=== PATIENT | male | born 1985 | race African-American/Black ===

== ENCOUNTER 2016-11-28 00:03 | Emergency (ER) | payer SELFPAY ==
[~2016-11-28] VITALS: Ht 182.9 cm; Wt 83.9 kg
[2016-11-28] MEDS ORDERED: IV NORMAL SALINE 1,000ML 1,000 ML IV SCH (00:53)
[2016-11-28] MEDS ORDERED: FAMOTIDINE 20 MG/2 ML VIAL IVP ONE (01:00)
[2016-11-28] MEDS ORDERED: KETOROLAC 30 MG/ML VIAL. IV ONE (01:00)
[2016-11-28] MEDS ORDERED: ALBU8.5H8 INH (01:08)
[2016-11-28 01:12] LABS: BASO % 1 % (0-3); EOS # 0.3 x10^3/uL (0.0-0.7); EOS % 3 % (0-3); HEMATOCRIT 41.8 % (39.0-53.0); HEMOGLOBIN 14.4 g/dL (13.0-17.5); LYMPH # 1.5 x10^3/uL (1.0-4.8); LYMPH % 17 % (24-48); MEAN CORPUSCULAR HEMOGLOBIN 32 pg (25-35); MEAN CORPUSCULAR HGB CONC 34 g/dL (31-37); MEAN CORPUSCULAR VOLUME 92 fL (79-100); MONO # 0.6 x10^3/uL (0.0-1.1); MONO % 7 % (0-9); NEUT # 6.5 x10^3uL (1.8-7.7); NEUT % 72 % (31-73); PLATELET COUNT 192 x10^3/uL (140-400); RED BLOOD COUNT 4.55 x10^6/uL (4.30-5.70); RED CELL DISTRIBUTION WIDTH 12.9 % (11.5-14.5)
--- NOTE | 2016-11-28 01:16 | ED.ADGEN ---
Past History Past Medical History: Other Additional Past Medical Histor: Abnormal Rt. Kidney- Seen Urology at [facility] Adult General Chief Complaint Chief Complaint ".. I got this bad stabbing pain in my Rt. flank starting about 7 tonight.. it so bad I started puking.. " HPI HPI Patient is a 31 year old male who presents with above hx and complaints. Pt. rates his pain 10/10 Rt flank and radiates to his right groin. Pt. denies prior hx of kidney stone, but has hx abnl. Rt. kidney, and has seen urology at [facility]. Pt. denies any history of change in meds, travel, or ill contacts. Patient denies any dysuria. Patient denies any immunosuppression. Review of Systems Review of Systems Constitutional: Denies fever or chills [] Eyes: Denies change in visual acuity, redness, or eye pain [] HENT: Denies nasal congestion or sore throat [] Respiratory: Denies cough or shortness of breath [] Cardiovascular: No additional information not addressed in HPI [] GI: Complaints of right flank abdominal pain, nausea, vomiting, denies bloody stools or diarrhea [] : Denies dysuria or hematuria [] Musculoskeletal: Denies back pain or joint pain [] Integument: Denies rash or skin lesions [] Neurologic: Denies headache, focal weakness or sensory changes [] Endocrine: Denies polyuria or polydipsia [] Family History Family History Noncontributory Current Medications Current Medications Current Medications Medications (Trade) Dose Ordered Sig/Vic Start Time Stop Time Status Last Admin Dose Admin Famotidine (Pepcid) 20 mg 1X ONCE 11/28/16 01:00 11/28/16 01:43 DC 11/28/16 01:05 20 MG Ketorolac Tromethamine (Toradol) 30 mg 1X ONCE 11/28/16 01:00 11/28/16 01:43 DC 11/28/16 01:05 30 MG Levofloxacin (Levaquin) 500 mg 1X ONCE 11/28/16 02:00 11/28/16 02:36 DC 11/28/16 02:02 500 MG Morphine Sulfate (Morphine 10mg Syringe) 10 mg 1X ONCE 11/28/16 02:00 11/28/16 02:36 DC 11/28/16 02:03 10 MG Sodium Chloride 1,000 ml @ 1,000 mls/hr Q1H 11/28/16 00:53 11/28/16 01:52 DC 11/28/16 00:53 1,000 MLS/HR Tamsulosin HCl (Flomax) 0.4 mg 1X ONCE 11/28/16 02:00 11/28/16 02:36 DC 11/28/16 02:03 0.4 MG Allergies Allergies Allergies Coded Allergies Type Severity Reaction Last Updated Verified No Known Drug Allergies 11/28/16 No Physical Exam Physical Exam Constitutional: Well developed, well nourished, in acute distress, non-toxic appearance. [] HENT: Normocephalic, atraumatic, bilateral external ears normal, oropharynx moist, no oral exudates, nose normal. [] Eyes: PERRLA, EOMI, conjunctiva normal, no discharge. [] Neck: Normal range of motion, no tenderness, supple, no stridor. [] Cardiovascular:Heart rate regular rhythm, no murmur [] Lungs & Thorax: Bilateral breath sounds clear to auscultation [] Abdomen: Bowel sounds decreased, soft, no tenderness, no masses, no pulsatile masses. Rt. flank pain on percussion. Skin: Warm, dry, no erythema, no rash. Tattoo's. Back: No tenderness, no CVA tenderness. [] Extremities: No tenderness, no cyanosis, no clubbing, ROM intact, no edema. No psoas or obturator sign Neurologic: Alert and oriented X 3, normal motor function, normal sensory function, no focal deficits noted. [] Psychologic: Affect normal, judgement normal, mood normal. [] Current Patient Data Lab Results Laboratory Tests Test 11/28/16 00:35 11/28/16 01:45 White Blood Count 9.0 x10^3/uL (4.0-11.0) Red Blood Count 4.55 x10^6/uL (4.30-5.70) Hemoglobin 14.4 g/dL (13.0-17.5) Hematocrit 41.8 % (39.0-53.0) Mean Corpuscular Volume 92 fL (79-100) Mean Corpuscular Hemoglobin 32 pg (25-35) Mean Corpuscular Hemoglobin Concent 34 g/dL (31-37) Red Cell Distribution Width 12.9 % (11.5-14.5) Platelet Count 192 x10^3/uL (140-400) Neutrophils (%) (Auto) 72 % (31-73) Lymphocytes (%) (Auto) 17 % (24-48) L Monocytes (%) (Auto) 7 % (0-9) Eosinophils (%) (Auto) 3 % (0-3) Basophils (%) (Auto) 1 % (0-3) Neutrophils # (Auto) 6.5 x10^3uL (1.8-7.7) Lymphocytes # (Auto) 1.5 x10^3/uL (1.0-4.8) Monocytes # (Auto) 0.6 x10^3/uL (0.0-1.1) Eosinophils # (Auto) 0.3 x10^3/uL (0.0-0.7) Basophils # (Auto) 0.0 x10^3/uL (0.0-0.2) Prothrombin Time 10.9 SEC (9.4-11.4) Prothrombin Time INR 1.1 (0.9-1.1) PTT 23 SEC (23-33) Sodium Level 141 mmol/L (136-145) Potassium Level 3.7 mmol/L (3.5-5.1) Chloride Level 107 mmol/L (98-107) Carbon Dioxide Level 28 mmol/L (21-32) Anion Gap 6 (6-14) Blood Urea Nitrogen 10 mg/dL (8-26) Creatinine 1.2 mg/dL (0.7-1.3) Estimated GFR (Cockcroft-Gault) 70.6 Glucose Level 98 mg/dL (70-99) Calcium Level 8.6 mg/dL (8.5-10.1) Total Bilirubin 0.6 mg/dL (0.2-1.0) Direct Bilirubin 0.1 mg/dL (0.0-0.2) Aspartate Amino Transferase (AST) 23 U/L (15-37) Alanine Aminotransferase (ALT) 22 U/L (16-63) Alkaline Phosphatase 49 U/L (46-116) Troponin I Quantitative < 0.017 ng/mL (0-0.055) Total Protein 6.2 g/dL (6.4-8.2) L Albumin 3.5 g/dL (3.4-5.0) Lipase 123 U/L (73-393) Urine Collection Type Void Urine Color Priscilla Urine Clarity Clear Urine pH 8.5 Urine Specific [place] 1.015 Urine Protein 30 mg/dl (NEG-TRACE) Urine Glucose (UA) Neg mg/dL (NEG) Urine Ketones (Stick) 15 mg/dL (NEG) Urine Blood Neg (NEG) Urine Nitrite Neg (NEG) Urine Bilirubin Neg (NEG) Urine Urobilinogen Dipstick 2 mg/dL (0.2 mg/dL) Urine Leukocyte Esterase Neg (NEG) Urine RBC Occ /HPF (0-2) Urine WBC Occ /HPF (0-4) Urine Squamous Epithelial Cells Occ /LPF Urine Bacteria Few /HPF (0-FEW) Urine Mucus Slight /LPF Urine Opiates Screen Neg (NEG) Urine Methadone Screen Neg (NEG) Urine Barbiturates Neg (NEG) Urine Phencyclidine Screen Neg (NEG) Urine Amphetamine/Methamphetamine Neg (NEG) Urine Benzodiazepines Screen Neg (NEG) Urine Cocaine Screen Neg (NEG) Urine Cannabinoids Screen Pos (NEG) Urine Ethyl Alcohol Neg (NEG) EKG EKG [] Radiology/Procedures Radiology/Procedures CT of abdomen shows no obstructive stone but does have hydronephrosis right kidney[] Course & Med Decision Making Course & Med Decision Making Pertinent Labs and Imaging studies reviewed. (See chart for details) Clear fluid diet. Push fluids. Patient push vitamin C drinks. Take Flomax as directed. Vicoprofen as needed for marked pain. Must follow-up with urology [] Final Impression Final Impression 1. Renal colic[] 2. Right renal hydronephrosis Problems: Dragon Disclaimer Dragon Disclaimer This electronic medical record was generated, in whole or in part, using a voice recognition dictation system. ESSENCE BURKS MD Nov 28, 2016 01:16
[2016-11-28 01:18] LABS: ALBUMIN 3.5 g/dL (3.4-5.0); CALCIUM 8.6 mg/dL (8.5-10.1); CREATININE 1.2 mg/dL (0.7-1.3); DIRECT BILIRUBIN 0.1 mg/dL (0.0-0.2); GFR 70.6; POTASSIUM 3.7 mmol/L (3.5-5.1); TOTAL BILIRUBIN 0.6 mg/dL (0.2-1.0); TOTAL PROTEIN 6.2 g/dL (6.4-8.2)
--- NOTE | 2016-11-28 01:31 | RAD ---
CT abdomen and pelvis without contrast HISTORY: Severe right abdominal and flank pain, nausea and vomiting. TECHNIQUE: Helical noncontrast CT imaging of the abdomen and pelvis was acquired. Abdomen findings: Liver, gallbladder, spleen, pancreas and adrenal glands are unremarkable. Left kidney unremarkable. There is severe right renal hydronephrosis associated with ureteropelvic junction obstruction, no obstructing calculus, there may be mild pericolic edema and renal edema. No obstruction or inflammatory changes in GI tract. The appendix is not visualized likely vascular by surrounding bowel loops. No abdominal fluid. High riding cecum and anatomic variant. Lung bases and bones are unremarkable. Pelvis findings: No bladder calculi. Prostate, rectum and bones are unremarkable. No pelvic fluid. IMPRESSION: 1. Severe right renal hydronephrosis due to a ureteropelvic junction obstruction. No nephroureterolithiasis evident. 2. The appendix is not visualized likely hidden by surrounding small bowel loops. Exposure: One or more of the following individualized dose reduction techniques were utilized for this examination: 1. Automated exposure control 2. Adjustment of the mA and/or kV according to patient size 3. Use of iterative reconstruction technique Electronically signed by: Abhinav Verde MD (11/28/2016 1:28 AM) [facility]
[2016-11-28] MEDS ORDERED: MORPHINE SULFATE 10 MG/ML SYRINGE. SQ ONE (02:00)
[2016-11-28] MEDS ORDERED: levoFLOXacin 500 MG TABLET PO ONE (02:00)
[2016-11-28] MEDS ORDERED: TAMSULOSIN 0.4 MG CAP.ER.24H. PO ONE (02:00)
[2016-11-28 02:24] LABS: BARBITURATES NEG (NEG); BENZODIAZEPINES NEG (NEG); CANNABINOIDS POS (NEG); COCAINE NEG (NEG); METHADONE NEG (NEG); OPIATES NEG (NEG); PHENCYCLIDINE NEG (NEG)
[2016-11-28 02:26] LABS: AMPHETAMINE/METHAMPHETAMINE NEG (NEG)
[2016-11-28] MEDS ORDERED: TAMS0.4C97 PO (02:27)
[2016-11-28] MEDS ORDERED: HYDR-79 PO (02:27)
[2016-11-28 02:30] LABS: BILIRUBIN,URINE NEG (NEG); CLARITY,URINE CLEAR; COLOR,URINE AMBER; GLUCOSE,URINE NEG (NEG)
[2016-11-28 02:31] LABS: BACTERIA,URINE FEW /HPF (0-FEW); NITRITE,URINE NEG (NEG); RBC,URINE OCC /HPF (0-2); SQUAMOUS EPITHELIAL CELL,UR OCC /LPF; UROBILINOGEN,URINE 2 mg/dL (0.2 mg/dL); WBC,URINE OCC /HPF (0-4)
[2016-11-28 02:50] VITALS: BP 131/81
== END 2016-11-28 02:56 | disposition home or self-care (01) ==
LOC: ER 00:03
DX: N23 Unspecified renal colic (principal); N13.30 Unspecified hydronephrosis
CPT/HCPCS: 36415; 74176; 80048; 80076; 80307; 81001; 83690; 84484; 85025; 85610; 85730; 96361; 96372; 96374; 96375; 99285; J1885; J2270; S0028; G0479; J7030

== ENCOUNTER 2018-04-27 01:25 | Emergency (ER) | payer SELFPAY ==
[~2018-04-27] VITALS: Ht 182.9 cm; Wt 93.0 kg
[~2018-04-27 01:25] MED LIST: ALBU2.5V8 INH; HYDR-1179 PO; TAMS0.4C97 PO
[2018-04-27] MEDS ORDERED: IV NORMAL SALINE 1,000ML 1,000 ML IV SCH (02:00)
[2018-04-27] MEDS ORDERED: ONDANSETRON PF 4 MG/2 ML VIAL. IV ONE (02:00)
[2018-04-27] MEDS ORDERED: PHENAZOPYRIDINE 200 MG TABLET. PO ONE (02:00)
[2018-04-27] MEDS: HYDROmorphone PF 1 MG/ML DISP.SYRIN IV/SQ PRN ×2 (02:02→03:42)
[2018-04-27 02:20] LABS: BASO # 0.1 x10^3/uL (0.0-0.2); BASO % 1 % (0-3); EOS # 0.7 x10^3/uL (0.0-0.7); EOS % 9 % (0-3); HEMATOCRIT 39.1 % (39.0-53.0); HEMOGLOBIN 13.2 g/dL (13.0-17.5); LYMPH # 2.7 x10^3/uL (1.0-4.8); LYMPH % 37 % (24-48); MEAN CORPUSCULAR HEMOGLOBIN 31 pg (25-35); MEAN CORPUSCULAR HGB CONC 34 g/dL (31-37); MEAN CORPUSCULAR VOLUME 93 fL (79-100); MONO # 0.6 x10^3/uL (0.0-1.1); MONO % 8 % (0-9); NEUT # 3.3 x10^3uL (1.8-7.7); NEUT % 45 % (31-73); PLATELET COUNT 230 x10^3/uL (140-400); RED BLOOD COUNT 4.21 x10^6/uL (4.30-5.70); RED CELL DISTRIBUTION WIDTH 13.2 % (11.5-14.5); WHITE BLOOD COUNT 7.4 x10^3/uL (4.0-11.0)
--- NOTE | 2018-04-27 02:27 | RAD ---
INDICATION: Severe right flank and abdomen pain, hx right stent 2 mths ago COMPARISON: November 2016 TECHNIQUE: Axial CT images obtained through the abdomen and pelvis without contrast. One or more of the following individualized dose reduction techniques were utilized for this examination: 1. Automated exposure control; 2. Adjustment of the mA and/or kV according to patient size; 3. Use of iterative reconstruction technique. FINDINGS: Abdominal aorta is not aneurysmal. No intrahepatic bile duct dilation. No peripancreatic fluid collection. Spleen unremarkable. No left-sided hydronephrosis. Severe right-sided hydronephrosis with right-sided nephroureteral stent. Urinary bladder is largely decompressed. No definite periappendiceal inflammation. There are some scattered mildly prominent lymph nodes right side of the abdomen. No dilated loops of bowel to suggest obstruction. There is some degenerative changes of spine with neural foraminal stenosis. IMPRESSION: 1. Severe right-sided hydronephrosis with right-sided nephroureteral stent. Electronically signed by: Brodie Weinberg MD (04/27/2018 2:24 AM) [facility]
[2018-04-27 02:29] LABS: CALCIUM 8.7 mg/dL (8.5-10.1); CREATININE 1.8 mg/dL (0.7-1.3); GFR 53.2
[2018-04-27 02:32] LABS: BACTERIA,URINE FEW /HPF (0-FEW); BILIRUBIN,URINE NEG (NEG); CLARITY,URINE HAZY; COLOR,URINE YELLOW; GLUCOSE,URINE 100 mg/dL (NEG); NITRITE,URINE POS (NEG); SQUAMOUS EPITHELIAL CELL,UR FEW /LPF; UROBILINOGEN,URINE 2 mg/dL (0.2 mg/dL)
--- NOTE | 2018-04-27 03:49 | PHYS DOC ---
Past History Past Medical History: Asthma, Other Additional Past Medical Histor: Abnormal Rt. Kidney- Seen Urology at [facility] Past Surgical History: Other Alcohol Use: Rarely Drug Use: None Adult General Chief Complaint Chief Complaint: FLANK PAIN HPI HPI Patient is a 32-year-old male who presents with complaint of severe right flank pain. Patient had right renal stent placed months back and states that his symptoms have not been resolved. Currently he rates his pain to be a 10 out of 10. He states that he is unable to get comfortable. He states that none of his medications that he has been taking has been helping with the pain. He also reports continued hematuria. Review of Systems Review of Systems Constitutional: Denies fever or chills [] Respiratory: Denies cough or shortness of breath [] Cardiovascular: No additional information not addressed in HPI [] GI: Denies abdominal pain, nausea, vomiting, bloody stools or diarrhea [] : Complains of right flank pain, dysuria and hematuria [] Musculoskeletal: Complains of right-sided back pain [] All other systems were reviewed and found to be within normal limits, except as documented in this note. Current Medications Current Medications Current Medications Medications (Trade) Dose Ordered Sig/Vic Start Time Stop Time Status Last Admin Dose Admin Hydromorphone HCl (Dilaudid) 1 mg PRN Q15MIN PRN 04/27/18 01:45 04/28/18 01:44 04/27/18 02:02 1 MG Ondansetron HCl (Zofran) 4 mg 1X ONCE 04/27/18 02:00 04/27/18 02:01 DC 04/27/18 02:01 4 MG Phenazopyridine HCl (Pyridium) 200 mg 1X ONCE 04/27/18 02:00 04/27/18 02:01 DC 04/27/18 02:00 200 MG Sodium Chloride 1,000 ml @ 1,000 mls/hr Q1H 04/27/18 02:00 04/27/18 03:00 DC 04/27/18 02:01 1,000 MLS/HR Allergies Allergies Allergies Coded Allergies Type Severity Reaction Last Updated Verified iodine Allergy Intermediate 04/27/18 Yes Physical Exam Physical Exam Constitutional: Well developed, well nourished, in moderate distress, non-toxic appearance. [] HENT: Normocephalic, atraumatic, bilateral external ears normal, oropharynx moist, no oral exudates, nose normal. [] Eyes: PERRLA, EOMI, conjunctiva normal, no discharge. [] Neck: Normal range of motion, no tenderness, supple, no stridor. [] Cardiovascular: Regular rate and rhythm[] Lungs & Thorax: Bilateral breath sounds clear to auscultation [] Abdomen: Bowel sounds normal, soft, with suprapubic tenderness. [] Skin: Warm, dry, no erythema, no rash. [] Extremities: No tenderness, no cyanosis, no clubbing, ROM intact, no edema. [] Neurologic: Alert and oriented X 3, normal motor function, normal sensory function, no focal deficits noted. [] Current Patient Data Vital Signs Vital Signs Date Time Temp Pulse Resp B/P (MAP) Pulse Ox O2 Delivery O2 Flow Rate FiO2 04/27/18 02:02 20 98 Room Air 04/27/18 01:28 97.4 62 Lab Results Laboratory Tests Test 04/27/18 01:49 04/27/18 01:58 Urine Collection Type Unknown Urine Color Yellow Urine Clarity Hazy Urine pH 5.5 Urine Specific [place] >=1.030 Urine Protein >100 mg/dl (NEG-TRACE) Urine Glucose (UA) 100 mg/dL (NEG) Urine Ketones (Stick) Trace mg/dL (NEG) Urine Blood Large (NEG) Urine Nitrite Pos (NEG) Urine Bilirubin Neg (NEG) Urine Urobilinogen Dipstick 2 mg/dL (0.2 mg/dL) Urine Leukocyte Esterase Neg (NEG) Urine RBC 6-10 /HPF (0-2) Urine WBC 5-10 /HPF (0-4) Urine Squamous Epithelial Cells Few /LPF Urine Bacteria Few /HPF (0-FEW) White Blood Count 7.4 x10^3/uL (4.0-11.0) Red Blood Count 4.21 x10^6/uL (4.30-5.70) L Hemoglobin 13.2 g/dL (13.0-17.5) Hematocrit 39.1 % (39.0-53.0) Mean Corpuscular Volume 93 fL (79-100) Mean Corpuscular Hemoglobin 31 pg (25-35) Mean Corpuscular Hemoglobin Concent 34 g/dL (31-37) Red Cell Distribution Width 13.2 % (11.5-14.5) Platelet Count 230 x10^3/uL (140-400) Neutrophils (%) (Auto) 45 % (31-73) Lymphocytes (%) (Auto) 37 % (24-48) Monocytes (%) (Auto) 8 % (0-9) Eosinophils (%) (Auto) 9 % (0-3) H Basophils (%) (Auto) 1 % (0-3) Neutrophils # (Auto) 3.3 x10^3uL (1.8-7.7) Lymphocytes # (Auto) 2.7 x10^3/uL (1.0-4.8) Monocytes # (Auto) 0.6 x10^3/uL (0.0-1.1) Eosinophils # (Auto) 0.7 x10^3/uL (0.0-0.7) Basophils # (Auto) 0.1 x10^3/uL (0.0-0.2) Sodium Level 144 mmol/L (136-145) Potassium Level 4.0 mmol/L (3.5-5.1) Chloride Level 108 mmol/L (98-107) H Carbon Dioxide Level 27 mmol/L (21-32) Anion Gap 9 (6-14) Blood Urea Nitrogen 14 mg/dL (8-26) Creatinine 1.8 mg/dL (0.7-1.3) H Estimated GFR (Cockcroft-Gault) 53.2 Glucose Level 97 mg/dL (70-99) Calcium Level 8.7 mg/dL (8.5-10.1) EKG EKG [] Radiology/Procedures Radiology/Procedures [] Impressions: PROCEDURE: CT ABDOMEN PELVIS WO CONTRAST INDICATION: Severe right flank and abdomen pain, hx right stent 2 mths ago COMPARISON: November 2016 TECHNIQUE: Axial CT images obtained through the abdomen and pelvis without contrast. One or more of the following individualized dose reduction techniques were utilized for this examination: 1. Automated exposure control; 2. Adjustment of the mA and/or kV according to patient size; 3. Use of iterative reconstruction technique. FINDINGS: Abdominal aorta is not aneurysmal. No intrahepatic bile duct dilation. No peripancreatic fluid collection. Spleen unremarkable. No left-sided hydronephrosis. Severe right-sided hydronephrosis with right-sided nephroureteral stent. Urinary bladder is largely decompressed. No definite periappendiceal inflammation. There are some scattered mildly prominent lymph nodes right side of the abdomen. No dilated loops of bowel to suggest obstruction. There is some degenerative changes of spine with neural foraminal stenosis. IMPRESSION: 1. Severe right-sided hydronephrosis with right-sided nephroureteral stent. Electronically signed by: Brodie Weinberg MD (04/27/2018 2:24 AM) [facility] Course & Med Decision Making Course & Med Decision Making Pertinent Labs and Imaging studies reviewed. (See chart for details) [] Dragon Disclaimer Dragon Disclaimer This electronic medical record was generated, in whole or in part, using a voice recognition dictation system. Departure Departure: Impression: Primary Impression: Hydronephrosis due to obstruction of ureter Additional Impressions: Acute kidney injury UTI (urinary tract infection) Disposition: 02 XFER [facility] Condition: IMPROVED Referrals: PCP,NO (PCP) Problem Qualifiers Additional Impressions: UTI (urinary tract infection) Urinary tract infection type: site unspecified Hematuria presence: with hematuria Qualified Codes: N39.0 - Urinary tract infection, site not specified ; R31.9 - Hematuria, unspecified LURDES HERNANDEZ Jr. DO Apr 27, 2018 03:49
[2018-04-27] MEDS ORDERED: IV NORMAL SALINE 50ML 50 ML ONE (03:52)
[2018-04-27] MEDS ORDERED: cefTRIAXone SODIUM 1 GM VIAL ONE (03:52)
[2018-04-27 04:05] VITALS: BP 113/72
== END 2018-04-27 04:41 | disposition short-term general hospital (02) ==
LOC: ER 01:25
DX: N13.1 Hydronephrosis with ureteral stricture, not elsewhere classified (principal); N17.9 Acute kidney failure, unspecified; N39.0 Urinary tract infection, site not specified; R31.9 Hematuria, unspecified; J45.909 Unspecified asthma, uncomplicated; Z88.8 Allergy status to other drugs, medicaments and biological substances
CPT/HCPCS: 36415; 74176; 80048; 81001; 85025; 87086; 96365; 96375; 96376; 99285; J0696; J1170; J2405; 96361; J7030

== ENCOUNTER 2018-08-30 21:33 | Emergency (ER) | payer SELFPAY ==
[~2018-08-30] VITALS: Ht 185.4 cm; Wt 93.0 kg
[2018-08-30] MEDS ORDERED: IV RINGERS SOLUTION,LACTATED 1,000 ML IV SCH (21:39)
--- NOTE | 2018-08-30 21:39 | ED.ADGEN ---
Past History Past Medical History: Asthma, Other Additional Past Medical Histor: Abnormal Rt. Kidney- Seen Urology at [facility] Past Surgical History: Other Alcohol Use: Rarely Drug Use: None Adult General Chief Complaint Chief Complaint ".. I ve got this flank pain.."..".. I have an abnormal kidney on the Rt.... since .. they say.. I had a stent put in back in February.. and they say it needs to be replaced... but my last doctor at [facility]... got me an apt at [facility]... because I can't afford to go to him...I ve also followed with a urology at [facility].. anyway.. I ve got my kidney pain again tonight on this rt. flank... and I am really nauseated.. and my urine got blood in it again..." HPI HPI Patient is a 33 year old male who presents with above hx and complaints acute on chronic right renal colic. 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 Patient poorly had a stent placed in February of this past y ear. However has been told he needs repositioning of the stent. Patient does have a follow-up appointment on September 17 at [facility]. Patient denies any trauma. Patient denies immunosuppression. No recent travel. Patient has had financial noncompliance for his follow-up with urology. Patient's rating his pain denied as 10 out of 10, and is having increased nausea. Review of Systems Review of Systems Constitutional: Denies fever or chills [] Eyes: Denies change in visual acuity, redness, or eye pain [] HENT: Denies nasal congestion or sore throat [] Respiratory: Denies cough or shortness of breath [] Cardiovascular: No additional information not addressed in HPI [] GI: Complaints of right flank abdominal pain, nausea,. Denies vomiting, bloody stools or diarrhea [] : Complaints of hematuria Musculoskeletal: Complaints of right flank back pain Integument: Denies rash or skin lesions [] Neurologic: Denies headache, focal weakness or sensory changes [] Endocrine: Denies polyuria or polydipsia [] All other systems were reviewed and found to be within normal limits, except as documented in this note. Family History Family History Noncontributory Current Medications Current Medications Current Medications Medications (Trade) Dose Ordered Sig/Vic Start Time Stop Time Status Last Admin Dose Admin Ceftriaxone Sodium 1 gm/ Sodium Chloride 50 ml @ 100 mls/hr 1X ONCE 08/30/18 23:45 08/31/18 00:14 08/30/18 23:36 100 MLS/HR Ceftriaxone Sodium (Rocephin) 1 gm STK-MED ONCE 08/30/18 23:29 08/30/18 23:30 DC Famotidine (Pepcid Vial) 20 mg 1X ONCE 08/30/18 22:00 08/30/18 22:01 DC 08/30/18 22:20 20 MG Ketorolac Tromethamine (Toradol 30mg Vial) 30 mg 1X ONCE 08/30/18 22:00 08/30/18 22:01 DC 08/30/18 22:20 30 MG Lactated Ringer's 1,000 ml @ 1,000 mls/hr Q1H 08/30/18 21:39 08/30/18 22:38 DC 08/30/18 22:21 1,000 MLS/HR Levofloxacin (Levaquin) 500 mg 1X ONCE 08/31/18 00:30 08/31/18 00:31 08/31/18 00:11 500 MG Morphine Sulfate (Morphine 10mg Syringe) 10 mg 1X ONCE 08/30/18 23:45 08/30/18 23:46 DC 08/30/18 23:35 10 MG Ondansetron HCl (Zofran) 8 mg 1X ONCE 08/30/18 22:00 08/30/18 22:01 DC 08/30/18 22:20 8 MG Sodium Chloride 50 ml @ As Directed STK-MED ONCE 08/30/18 23:29 08/30/18 23:30 DC Allergies Allergies Allergies Coded Allergies Type Severity Reaction Last Updated Verified iodine Allergy Intermediate 04/27/18 Yes Physical Exam Physical Exam Constitutional: In acute distress, non-toxic appearance. [] HENT: Normocephalic, atraumatic, bilateral external ears normal, oropharynx moist, no oral exudates, nose normal. [] Eyes: PERRLA, EOMI, conjunctiva normal, no discharge. [] Neck: Normal range of motion, no tenderness, supple, no stridor. [] Cardiovascular:Heart rate regular rhythm, no murmur [] Lungs & Thorax: Bilateral breath sounds equal at apex on auscultation [] Abdomen: Bowel sounds decreased, soft, right flank tenderness, no masses, no pulsatile masses. No specific rebound. Skin: Warm, dry, no erythema, no rash. [] Back: No tenderness, right CVA tenderness. [] Extremities: No tenderness, no cyanosis, no clubbing, ROM intact, no edema. [] No psoas sign. Neurologic: Alert and oriented X 3, normal motor function, normal sensory function, no focal deficits noted. [] Psychologic: Affect anxious, judgement normal, mood normal. [] Current Patient Data Vital Signs Vital Signs Date Time Temp Pulse Resp B/P (MAP) Pulse Ox O2 Delivery O2 Flow Rate FiO2 08/30/18 23:35 Room Air 08/30/18 22:21 20 08/30/18 21:46 98.3 58 99 Lab Results Laboratory Tests Test 08/30/18 22:10 White Blood Count 6.8 x10^3/uL (4.0-11.0) Red Blood Count 4.51 x10^6/uL (4.30-5.70) Hemoglobin 14.3 g/dL (13.0-17.5) Hematocrit 41.9 % (39.0-53.0) Mean Corpuscular Volume 93 fL (79-100) Mean Corpuscular Hemoglobin 32 pg (25-35) Mean Corpuscular Hemoglobin Concent 34 g/dL (31-37) Red Cell Distribution Width 13.1 % (11.5-14.5) Platelet Count 254 x10^3/uL (140-400) Neutrophils (%) (Auto) 58 % (31-73) Lymphocytes (%) (Auto) 30 % (24-48) Monocytes (%) (Auto) 8 % (0-9) Eosinophils (%) (Auto) 4 % (0-3) H Basophils (%) (Auto) 1 % (0-3) Neutrophils # (Auto) 3.9 x10^3uL (1.8-7.7) Lymphocytes # (Auto) 2.0 x10^3/uL (1.0-4.8) Monocytes # (Auto) 0.5 x10^3/uL (0.0-1.1) Eosinophils # (Auto) 0.3 x10^3/uL (0.0-0.7) Basophils # (Auto) 0.0 x10^3/uL (0.0-0.2) Prothrombin Time 11.0 SEC (9.4-11.4) Prothrombin Time INR 1.1 (0.9-1.1) PTT 24 SEC (23-33) Urine Collection Type Unknown Urine Color [place] Urine Clarity Hazy Urine pH 7.0 Urine Specific [place] 1.010 Urine Protein 30 mg/dl (NEG-TRACE) Urine Glucose (UA) 100 mg/dL (NEG) Urine Ketones (Stick) Neg mg/dL (NEG) Urine Blood Large (NEG) Urine Nitrite Pos (NEG) Urine Bilirubin Neg (NEG) Urine Urobilinogen Dipstick 1 mg/dL (0.2 mg/dL) Urine Leukocyte Esterase Trace (NEG) Urine RBC 6-10 /HPF (0-2) Urine WBC 1-4 /HPF (0-4) Urine Squamous Epithelial Cells Occ /LPF Urine Bacteria Few /HPF (0-FEW) Sodium Level 144 mmol/L (136-145) Potassium Level 3.2 mmol/L (3.5-5.1) L Chloride Level 106 mmol/L (98-107) Carbon Dioxide Level 25 mmol/L (21-32) Anion Gap 13 (6-14) Blood Urea Nitrogen 9 mg/dL (8-26) Creatinine 1.1 mg/dL (0.7-1.3) Estimated GFR (Cockcroft-Gault) 93.3 Glucose Level 85 mg/dL (70-99) Calcium Level 9.2 mg/dL (8.5-10.1) Total Bilirubin 0.4 mg/dL (0.2-1.0) Direct Bilirubin 0.1 mg/dL (0.0-0.2) Aspartate Amino Transferase (AST) 15 U/L (15-37) Alanine Aminotransferase (ALT) 26 U/L (16-63) Alkaline Phosphatase 61 U/L (46-116) Total Protein 7.4 g/dL (6.4-8.2) Albumin 4.0 g/dL (3.4-5.0) Lipase 297 U/L (73-393) Urine Opiates Screen Neg (NEG) Urine Methadone Screen Neg (NEG) Urine Barbiturates Neg (NEG) Urine Phencyclidine Screen Neg (NEG) Urine Amphetamine/Methamphetamine Neg (NEG) Urine Benzodiazepines Screen Neg (NEG) Urine Cocaine Screen Neg (NEG) Urine Cannabinoids Screen Neg (NEG) Urine Ethyl Alcohol Neg (NEG) EKG EKG [] Radiology/Procedures Radiology/Procedures My interpretation acute abdomen film shows no acute cardiopulmonary changes. No free air in the diaphragm. Nonspecific bowel gas pattern. Does have findings of a right renal stent that appears to be appropriately positioned [][address] [address] IMAGING REPORT Signed PATIENT: BETHANY STEWART ACCOUNT: [id number] : 1985 LOCATION: ER AGE: 33 SEX: M EXAM STATUS: REG ER ORD. PHYSICIAN: ESSENCE BURKS MD REASON: Rt. flank pain, renal stent PROCEDURE: CT ABDOMEN PELVIS WO CONTRAST PQRS Compliance Statement: One or more of the following individualized dose reduction techniques were utilized for this examination: 1. Automated exposure control 2. Adjustment of the mA and/or kV according to patient size 3. Use of iterative reconstruction technique CT ABDOMEN PELVIS WO CONTRAST Clinical Indication: Right flank pain, renal stent. Comparison: CT abdomen and pelvis without contrast, April 27, 2018. Technique: Helical CT imaging of the abdomen and pelvis is performed without IV or oral contrast. Findings: Bases are clear. Cardiac size normal. Liver, gallbladder, spleen, pancreas, adrenal glands, and abdominal aorta caliber are normal. The left kidney is normal. There is a right ureteral stent, position is appropriate. There is severe right hydronephrosis, slightly improved from prior study. Stomach unremarkable. There is no dilated small bowel. The appendix is normal. There is no colon wall thickening. No abdominal adenopathy or free fluid. No urinary bladder wall thickening. Prostate size normal. No pelvic free fluid. No acute bone abnormality. IMPRESSION: There is right renal stent. Severe right hydronephrosis. Electronically signed by: Viral Still MD (08/30/2018 11:22 PM) [facility] DICTATED AND SIGNED BY: VIRAL STILL MD DATE: 08/30/18 8961 CC: ESSENCE BURKS MD; PCP,NO ~ Course & Med Decision Making Course & Med Decision Making Pertinent Labs and Imaging studies reviewed. (See chart for details) Patient declines admission or transfer at this time. Patient states he will follow with [facility] tomorrow. Patient encourage push fluids. Patient to take Levaquin 500 mg a day. Patient may take Vicoprofen up to 4 times a day for marked pain. Patient take Zofran 8 mg up 4 times a day for nausea and vomiting. Patient take his CT disc with him on follow-up with urology. Follow up urine cultures. [] Final Impression Final Impression 1. Renal Colic- Rt. 2. Rt. Hydronephrosis 3. Rt Renal Stent 4. UTI [] Dragon Disclaimer Dragon Disclaimer This electronic medical record was generated, in whole or in part, using a voice recognition dictation system. Discharge Summary Visit Information Final Diagnosis Problems Medical Problems: (1) Hydronephrosis concurrent with and due to ureteral stricture Status: Acute (2) Renal colic on right side Status: Acute Brief Hospital Course Allergies Allergies Coded Allergies Type Severity Reaction Last Updated Verified iodine Allergy Intermediate 04/27/18 Yes Vital Signs Vital Signs Date Time Temp Pulse Resp B/P (MAP) Pulse Ox O2 Delivery O2 Flow Rate FiO2 08/30/18 23:35 Room Air 08/30/18 22:21 20 08/30/18 21:46 98.3 58 99 Lab Results Laboratory Tests Test 08/30/18 22:10 White Blood Count 6.8 x10^3/uL (4.0-11.0) Red Blood Count 4.51 x10^6/uL (4.30-5.70) Hemoglobin 14.3 g/dL (13.0-17.5) Hematocrit 41.9 % (39.0-53.0) Mean Corpuscular Volume 93 fL (79-100) Mean Corpuscular Hemoglobin 32 pg (25-35) Mean Corpuscular Hemoglobin Concent 34 g/dL (31-37) Red Cell Distribution Width 13.1 % (11.5-14.5) Platelet Count 254 x10^3/uL (140-400) Neutrophils (%) (Auto) 58 % (31-73) Lymphocytes (%) (Auto) 30 % (24-48) Monocytes (%) (Auto) 8 % (0-9) Eosinophils (%) (Auto) 4 % (0-3) Basophils (%) (Auto) 1 % (0-3) Neutrophils # (Auto) 3.9 x10^3uL (1.8-7.7) Lymphocytes # (Auto) 2.0 x10^3/uL (1.0-4.8) Monocytes # (Auto) 0.5 x10^3/uL (0.0-1.1) Eosinophils # (Auto) 0.3 x10^3/uL (0.0-0.7) Basophils # (Auto) 0.0 x10^3/uL (0.0-0.2) Prothrombin Time 11.0 SEC (9.4-11.4) Prothromb Time International Ratio 1.1 (0.9-1.1) Activated Partial Thromboplast Time 24 SEC (23-33) Urine Collection Type Unknown Urine Color [place] Urine Clarity Hazy Urine pH 7.0 Urine Specific [place] 1.010 Urine Protein 30 mg/dl (NEG-TRACE) Urine Glucose (UA) 100 mg/dL (NEG) Urine Ketones (Stick) Neg mg/dL (NEG) Urine Blood Large (NEG) Urine Nitrite Pos (NEG) Urine Bilirubin Neg (NEG) Urine Urobilinogen Dipstick 1 mg/dL (0.2 mg/dL) Urine Leukocyte Esterase Trace (NEG) Urine RBC 6-10 /HPF (0-2) Urine WBC 1-4 /HPF (0-4) Urine Squamous Epithelial Cells Occ /LPF Urine Bacteria Few /HPF (0-FEW) Sodium Level 144 mmol/L (136-145) Potassium Level 3.2 mmol/L (3.5-5.1) Chloride Level 106 mmol/L (98-107) Carbon Dioxide Level 25 mmol/L (21-32) Anion Gap 13 (6-14) Blood Urea Nitrogen 9 mg/dL (8-26) Creatinine 1.1 mg/dL (0.7-1.3) Estimated GFR (Cockcroft-Gault) 93.3 Glucose Level 85 mg/dL (70-99) Calcium Level 9.2 mg/dL (8.5-10.1) Total Bilirubin 0.4 mg/dL (0.2-1.0) Direct Bilirubin 0.1 mg/dL (0.0-0.2) Aspartate Amino Transf (AST/SGOT) 15 U/L (15-37) Alanine Aminotransferase (ALT/SGPT) 26 U/L (16-63) Alkaline Phosphatase 61 U/L (46-116) Total Protein 7.4 g/dL (6.4-8.2) Albumin 4.0 g/dL (3.4-5.0) Lipase 297 U/L (73-393) Urine Opiates Screen Neg (NEG) Urine Methadone Screen Neg (NEG) Urine Barbiturates Neg (NEG) Urine Phencyclidine Screen Neg (NEG) Urine Amphetamine/Methamphetamine Neg (NEG) Urine Benzodiazepines Screen Neg (NEG) Urine Cocaine Screen Neg (NEG) Urine Cannabinoids Screen Neg (NEG) Urine Ethyl Alcohol Neg (NEG) Brief Hospital Course Mr. Stewart is a 33 old male who presented with acute on chronic Rt renal colic. Discharge Information Condition at Discharge: Improved, Stable Disposition/Orders: D/C to Home Dischare Medications Current Medications Lactated Ringer's 1,000 ml @ 1,000 mls/hr Q1H IV Last administered on 08/30/18at 22:21; Admin Dose 1,000 MLS/HR; Start 08/30/18 at 21:39; Stop 08/30/18 at 22:38; Status DC Ondansetron HCl (Zofran) 8 mg 1X ONCE IV Last administered on 08/30/18at 22:20; Admin Dose 8 MG; Start 08/30/18 at 22:00; Stop 08/30/18 at 22:01; Status DC Famotidine (Pepcid Vial) 20 mg 1X ONCE IVP Last administered on 08/30/18at 22:20; Admin Dose 20 MG; Start 08/30/18 at 22:00; Stop 08/30/18 at 22:01; Status DC Ketorolac Tromethamine (Toradol 30mg Vial) 30 mg 1X ONCE IV Last administered on 08/30/18at 22:20; Admin Dose 30 MG; Start 08/30/18 at 22:00; Stop 08/30/18 at 22:01; Status DC Morphine Sulfate (Morphine 10mg Syringe) 10 mg 1X ONCE SQ Last administered on 08/30/18at 22:21; Admin Dose 10 MG; Start 08/30/18 at 22:00; Stop 08/30/18 at 22:01; Status DC Morphine Sulfate (Morphine 10mg Syringe) 10 mg 1X ONCE SQ Last administered on 08/30/18at 23:35; Admin Dose 10 MG; Start 08/30/18 at 23:45; Stop 08/30/18 at 23:46; Status DC Ceftriaxone Sodium 1 gm/ Sodium Chloride 50 ml @ 100 mls/hr 1X ONCE IV Last administered on 08/30/18at 23:36; Admin Dose 100 MLS/HR; Start 08/30/18 at 23:45; Stop 08/31/18 at 00:14 Sodium Chloride 50 ml @ As Directed STK-MED ONCE .ROUTE ; Start 08/30/18 at 23:29; Stop 08/30/18 at 23:30; Status DC Ceftriaxone Sodium (Rocephin) 1 gm STK-MED ONCE .ROUTE ; Start 08/30/18 at 23:29; Stop 08/30/18 at 23:30; Status DC Levofloxacin (Levaquin) 500 mg 1X ONCE PO Last administered on 08/31/18at 00:11; Admin Dose 500 MG; Start 08/31/18 at 00:30; Stop 08/31/18 at 00:31 Active Scripts Active Levaquin (Levofloxacin) 500 Mg Tablet 500 Mg PO DAILY 7 Days Zofran (Ondansetron Hcl) 8 Mg Tablet 8 Mg PO QIDPRN PRN Hydrocodone-Ibuprofen 7.5-200 (Hydrocodone/Ibuprofen) 1 Each Tablet 1 Tab PO PRN Q6HRS PRN Hydrocodone-Ibuprofen 7.5-200 (Hydrocodone/Ibuprofen) 1 Each Tablet 1 Tab PO PRN Q6HRS PRN Flomax (Tamsulosin Hcl) 0.4 Mg Cap.er.24h 0.4 Mg PO DAILY 10 Days Reported Proair Hfa Inhaler (Albuterol Sulfate) 8.5 Gm Hfa.aer.ad 2 Puff INH PRN Q6HRS PRN Dragon Disclaimer This chart was dictated in whole or in part using Voice Recognition software in a busy, high-work load, and often noisy Emergency Department environment. It may contain unintended and wholly unrecognized errors or omissions. ESSENCE BURKS MD Aug 30, 2018 21:39
[2018-08-30] MEDS ORDERED: MORPHINE SULFATE 10 MG/ML SYRINGE. SQ ONE ×2 (22:00→23:45)
[2018-08-30] MEDS ORDERED: ONDANSETRON PF 4 MG/2 ML VIAL. IV ONE (22:00)
[2018-08-30] MEDS ORDERED: FAMOTIDINE 20 MG/2 ML VIAL IVP ONE (22:00)
[2018-08-30] MEDS ORDERED: KETOROLAC 30 MG/ML VIAL. IV ONE (22:00)
[2018-08-30 22:30] LABS: BASO % 1 % (0-3); EOS # 0.3 x10^3/uL (0.0-0.7); EOS % 4 % (0-3); HEMATOCRIT 41.9 % (39.0-53.0); HEMOGLOBIN 14.3 g/dL (13.0-17.5); LYMPH % 30 % (24-48); MEAN CORPUSCULAR HEMOGLOBIN 32 pg (25-35); MEAN CORPUSCULAR HGB CONC 34 g/dL (31-37); MEAN CORPUSCULAR VOLUME 93 fL (79-100); MONO # 0.5 x10^3/uL (0.0-1.1); MONO % 8 % (0-9); NEUT # 3.9 x10^3uL (1.8-7.7); NEUT % 58 % (31-73); PLATELET COUNT 254 x10^3/uL (140-400); RED BLOOD COUNT 4.51 x10^6/uL (4.30-5.70); RED CELL DISTRIBUTION WIDTH 13.1 % (11.5-14.5); WHITE BLOOD COUNT 6.8 x10^3/uL (4.0-11.0)
[2018-08-30 22:37] LABS: AMPHETAMINE/METHAMPHETAMINE NEG (NEG); BARBITURATES NEG (NEG); BENZODIAZEPINES NEG (NEG); CANNABINOIDS NEG (NEG); COCAINE NEG (NEG); METHADONE NEG (NEG); OPIATES NEG (NEG); PHENCYCLIDINE NEG (NEG)
[2018-08-30 22:42] LABS: CALCIUM 9.2 mg/dL (8.5-10.1); CREATININE 1.1 mg/dL (0.7-1.3); DIRECT BILIRUBIN 0.1 mg/dL (0.0-0.2); GFR 93.3; POTASSIUM 3.2 mmol/L (3.5-5.1); TOTAL BILIRUBIN 0.4 mg/dL (0.2-1.0); TOTAL PROTEIN 7.4 g/dL (6.4-8.2)
[2018-08-30 22:52] LABS: BILIRUBIN,URINE NEG (NEG); CLARITY,URINE HAZY; COLOR,URINE ORANGE; GLUCOSE,URINE 100 mg/dL (NEG)
[2018-08-30 22:53] LABS: BACTERIA,URINE FEW /HPF (0-FEW); NITRITE,URINE POS (NEG); SQUAMOUS EPITHELIAL CELL,UR OCC /LPF; UROBILINOGEN,URINE 1 mg/dL (0.2 mg/dL)
--- NOTE | 2018-08-30 23:25 | RAD ---
PQRS Compliance Statement: One or more of the following individualized dose reduction techniques were utilized for this examination: 1. Automated exposure control 2. Adjustment of the mA and/or kV according to patient size 3. Use of iterative reconstruction technique CT ABDOMEN PELVIS WO CONTRAST Clinical Indication: Right flank pain, renal stent. Comparison: CT abdomen and pelvis without contrast, April 27, 2018. Technique: Helical CT imaging of the abdomen and pelvis is performed without IV or oral contrast. Findings: Bases are clear. Cardiac size normal. Liver, gallbladder, spleen, pancreas, adrenal glands, and abdominal aorta caliber are normal. The left kidney is normal. There is a right ureteral stent, position is appropriate. There is severe right hydronephrosis, slightly improved from prior study. Stomach unremarkable. There is no dilated small bowel. The appendix is normal. There is no colon wall thickening. No abdominal adenopathy or free fluid. No urinary bladder wall thickening. Prostate size normal. No pelvic free fluid. No acute bone abnormality. IMPRESSION: There is right renal stent. Severe right hydronephrosis. Electronically signed by: Viral Still MD (08/30/2018 11:22 PM) [facility]
[2018-08-30] MEDS ORDERED: IV NORMAL SALINE 50ML 50 ML ONE (23:29)
[2018-08-30] MEDS ORDERED: cefTRIAXone SODIUM 1 GM VIAL ONE (23:29)
[2018-08-30] MEDS ORDERED: LEVO500T59 PO (23:58)
[2018-08-30] MEDS ORDERED: ONDA8TAB9 PO (23:58)
[2018-08-30] MEDS ORDERED: HYDR-1179 PO (23:58)
[2018-08-31 00:10] VITALS: BP 132/88
[2018-08-31] MEDS ORDERED: levoFLOXacin 500 MG TABLET PO ONE (00:30)
--- NOTE | 2018-08-31 07:58 | RAD ---
EXAM: Frontal view of the chest, AP views of the abdomen in upright and supine positions. CLINICAL INDICATION: Right flank pain, history of right renal stent COMPARISON: CT 08/30/2018 FINDINGS and IMPRESSION: The heart is not enlarged. Mediastinal and hilar contours are normal. No focal parenchymal airspace opacity. No pleural effusion or pneumothorax. No abnormal small or large bowel dilatation. Right ureteral stent is seen with pigtails projecting over the expected right renal pelvis and bladder. Moderate colonic stool content. No abnormal soft tissue mass effect. No suspicious calcifications are seen. No free intraperitoneal gas. Electronically signed by: Jonathon Masters MD (08/31/2018 7:55 AM) [facility]
== END 2018-08-31 00:12 | disposition home or self-care (01) ==
LOC: ER 21:33
DX: N13.1 Hydronephrosis with ureteral stricture, not elsewhere classified (principal); N20.0 Calculus of kidney; N39.0 Urinary tract infection, site not specified; J45.909 Unspecified asthma, uncomplicated; Z88.8 Allergy status to other drugs, medicaments and biological substances
CPT/HCPCS: 36415; 74022; 74176; 80048; 80076; 80307; 81001; 83690; 85025; 85610; 85730; 87086; 96365; 96372; 96375; 99285; J0696; J1885; J2270; J2405; J3490; J7120

== ENCOUNTER 2018-10-06 19:46 | Emergency (ER) | payer SELFPAY ==
[2018-10-06 19:46] VITALS: BP 136/84
[~2018-10-06 19:46] MED LIST changes: +LEVO500T59 PO; +ONDA8TAB9 PO
[2018-10-06] MEDS ORDERED: IV NORMAL SALINE 1,000ML 1,000 ML IV SCH (20:14)
[2018-10-06] MEDS ORDERED: HYDROmorphone PF 1 MG/ML DISP.SYRIN IV/SQ PRN (20:15)
[2018-10-06] MEDS ORDERED: ONDANSETRON PF 4 MG/2 ML VIAL. IV ONE (20:30)
[2018-10-06 20:43] LABS: BASO # 0.1 x10^3/uL (0.0-0.2); BASO % 1 % (0-3); EOS # 0.2 x10^3/uL (0.0-0.7); EOS % 4 % (0-3); HEMATOCRIT 44.5 % (39.0-53.0); LYMPH % 33 % (24-48); MEAN CORPUSCULAR HEMOGLOBIN 31 pg (25-35); MEAN CORPUSCULAR HGB CONC 34 g/dL (31-37); MEAN CORPUSCULAR VOLUME 93 fL (79-100); MONO # 0.5 x10^3/uL (0.0-1.1); MONO % 8 % (0-9); NEUT # 3.3 x10^3uL (1.8-7.7); NEUT % 55 % (31-73); PLATELET COUNT 242 x10^3/uL (140-400); RED BLOOD COUNT 4.78 x10^6/uL (4.30-5.70); RED CELL DISTRIBUTION WIDTH 13.3 % (11.5-14.5); WHITE BLOOD COUNT 6.1 x10^3/uL (4.0-11.0)
[2018-10-06 20:57] LABS: ALBUMIN 4.2 g/dL (3.4-5.0); ALBUMIN/GLOBULIN RATIO 1.1 (1.0-1.7); CALCIUM 9.6 mg/dL (8.5-10.1); CREATININE 1.1 mg/dL (0.7-1.3); GFR 93.3; POTASSIUM 3.6 mmol/L (3.5-5.1); TOTAL BILIRUBIN 0.4 mg/dL (0.2-1.0); TOTAL PROTEIN 7.9 g/dL (6.4-8.2)
[2018-10-06 21:12] LABS: BACTERIA,URINE 0 /HPF (0-FEW); BILIRUBIN,URINE NEG (NEG); CLARITY,URINE TURBID; COLOR,URINE BROWN; GLUCOSE,URINE NEG (NEG); NITRITE,URINE NEG (NEG); RBC,URINE TNTC /HPF (0-2); SQUAMOUS EPITHELIAL CELL,UR OCC /LPF; UROBILINOGEN,URINE 0.2 mg/dL (0.2 mg/dL)
[2018-10-06] MEDS ORDERED: OXYC1TAB22 PO (21:37)
[2018-10-06] MEDS ORDERED: MTH/1CAP PO (21:37)
--- NOTE | 2018-10-06 21:37 | PHYS DOC ---
Past History Past Medical History: Asthma, Kidney Stones, Other Additional Past Medical Histor: Abnormal Rt. Kidney- Seen Urology at [facility] Past Surgical History: Other Alcohol Use: Occasionally Drug Use: None Adult General Chief Complaint Chief Complaint: FLANK PAIN HPI HPI Patient is a 33-year-old male who presents with complaint of right flank pain and urinary discomfort that has been present chronically. Patient had a ureteral stent placed back in February of this year. He states that he is scheduled for removal of stent next Thursday. He states the pain has just gotten unbearable. He states that it feels like he has a urinary tract infection all the time. He does admit to intermittent nausea. Currently he rates his pain to be an 8 out of 10.[] Review of Systems Review of Systems Constitutional: Denies fever or chills [] Respiratory: Denies cough or shortness of breath [] Cardiovascular: No additional information not addressed in HPI [] GI: Complains of right flank/lower abdominal pain with nausea.[] : Complains of dysuria and hematuria [] Musculoskeletal: Complains of right-sided back pain [] All other systems were reviewed and found to be within normal limits, except as documented in this note. Current Medications Current Medications Current Medications Medications (Trade) Dose Ordered Sig/Vic Start Time Stop Time Status Last Admin Dose Admin Hydromorphone HCl (Dilaudid) 1 mg PRN Q15MIN PRN 10/06/18 20:15 10/07/18 20:14 10/06/18 20:35 1 MG Ondansetron HCl (Zofran) 4 mg 1X ONCE 10/06/18 20:30 10/06/18 20:31 DC 10/06/18 20:35 4 MG Sodium Chloride 1,000 ml @ 1,000 mls/hr Q1H 10/06/18 20:14 10/06/18 21:13 DC 10/06/18 20:35 1,000 MLS/HR Allergies Allergies Allergies Coded Allergies Type Severity Reaction Last Updated Verified iodine Allergy Intermediate 04/27/18 Yes Physical Exam Physical Exam Constitutional: Well developed, well nourished, no acute distress, non-toxic appearance. [] Cardiovascular:Heart rate regular rhythm, no murmur [] Lungs & Thorax: Bilateral breath sounds clear to auscultation [] Abdomen: Bowel sounds normal, soft, with suprapubic tenderness. [] Skin: Warm, dry, no erythema, no rash. [] Neurologic: Alert and oriented X 3, no focal deficits noted. [] Current Patient Data Vital Signs Vital Signs Date Time Temp Pulse Resp B/P (MAP) Pulse Ox O2 Delivery O2 Flow Rate FiO2 10/06/18 20:35 20 98 10/06/18 19:46 97.5 58 Room Air Lab Results Laboratory Tests Test 10/06/18 20:25 White Blood Count 6.1 x10^3/uL (4.0-11.0) Red Blood Count 4.78 x10^6/uL (4.30-5.70) Hemoglobin 15.0 g/dL (13.0-17.5) Hematocrit 44.5 % (39.0-53.0) Mean Corpuscular Volume 93 fL (79-100) Mean Corpuscular Hemoglobin 31 pg (25-35) Mean Corpuscular Hemoglobin Concent 34 g/dL (31-37) Red Cell Distribution Width 13.3 % (11.5-14.5) Platelet Count 242 x10^3/uL (140-400) Neutrophils (%) (Auto) 55 % (31-73) Lymphocytes (%) (Auto) 33 % (24-48) Monocytes (%) (Auto) 8 % (0-9) Eosinophils (%) (Auto) 4 % (0-3) H Basophils (%) (Auto) 1 % (0-3) Neutrophils # (Auto) 3.3 x10^3uL (1.8-7.7) Lymphocytes # (Auto) 2.0 x10^3/uL (1.0-4.8) Monocytes # (Auto) 0.5 x10^3/uL (0.0-1.1) Eosinophils # (Auto) 0.2 x10^3/uL (0.0-0.7) Basophils # (Auto) 0.1 x10^3/uL (0.0-0.2) Urine Collection Type Unknown Urine Color Brown Urine Clarity Turbid Urine pH 6.5 Urine Specific [place] >=1.030 Urine Protein >100 mg/dl (NEG-TRACE) Urine Glucose (UA) Neg mg/dL (NEG) Urine Ketones (Stick) Trace mg/dL (NEG) Urine Blood Large (NEG) Urine Nitrite Neg (NEG) Urine Bilirubin Neg (NEG) Urine Urobilinogen Dipstick 0.2 mg/dL (0.2 mg/dL) Urine Leukocyte Esterase Trace (NEG) Urine RBC Tntc /HPF (0-2) Urine WBC 1-4 /HPF (0-4) Urine Squamous Epithelial Cells Occ /LPF Urine Bacteria 0 /HPF (0-FEW) Urine Mucus Slight /LPF Sodium Level 142 mmol/L (136-145) Potassium Level 3.6 mmol/L (3.5-5.1) Chloride Level 105 mmol/L (98-107) Carbon Dioxide Level 29 mmol/L (21-32) Anion Gap 8 (6-14) Blood Urea Nitrogen 9 mg/dL (8-26) Creatinine 1.1 mg/dL (0.7-1.3) Estimated GFR (Cockcroft-Gault) 93.3 BUN/Creatinine Ratio 8 (6-20) Glucose Level 90 mg/dL (70-99) Calcium Level 9.6 mg/dL (8.5-10.1) Total Bilirubin 0.4 mg/dL (0.2-1.0) Aspartate Amino Transferase (AST) 17 U/L (15-37) Alanine Aminotransferase (ALT) 22 U/L (16-63) Alkaline Phosphatase 69 U/L (46-116) Total Protein 7.9 g/dL (6.4-8.2) Albumin 4.2 g/dL (3.4-5.0) Albumin/Globulin Ratio 1.1 (1.0-1.7) EKG EKG [] Radiology/Procedures Radiology/Procedures [] Course & Med Decision Making Course & Med Decision Making Pertinent Labs and Imaging studies reviewed. (See chart for details) [] Dragon Disclaimer Dragon Disclaimer This electronic medical record was generated, in whole or in part, using a voice recognition dictation system. Departure Departure: Impression: Primary Impression: Dysuria Additional Impression: Right flank pain Disposition: 01 HOME, SELF-CARE Condition: STABLE Referrals: PCP,NO (PCP) Patient Instructions: Dysuria, Flank Pain, Form - Excuse from Work, School, or Physical Activity Scripts Mth/Me Blue/Sod Phos/Phen/Hyos (URIN D.S. TABLET) 1 Each Tablet 1 EACH PO QID PRN for URINARY PAIN, #30 TAB 1 Refill Prov: LURDES HERNANDEZ Jr. DO 10/06/18 Mth/Me Blue/Sod Phos/Phen/Hyos (URIBEL CAPSULE) 1 Each Capsule 1 CAP PO PRN QID PRN for URINARY PAIN, #30 CAP 1 Refill Prov: LURDES HERNANDEZ Jr. DO 10/06/18 Oxycodone Hcl/Acetaminophen (PERCOCET 10-325 MG TABLET ) 1 Each Tablet 1-2 TAB PO Q4-6HRS PRN for PAIN, #20 TAB Prov: LURDES HERNANDEZ Jr. DO 10/06/18 Problem Qualifiers LURDES HERNANDEZ Jr. DO Oct 06, 2018 21:37
[2018-10-06] MEDS ORDERED: [UNRECOGNIZED DRUG - CODE] PO (21:40)
[2018-10-06] MEDS ORDERED: oxyCODONE/APAP 10/325 1 TAB TABLET PO ONE (22:15)
== END 2018-10-06 22:25 | disposition home or self-care (01) ==
LOC: ER 19:46
DX: R10.31 Right lower quadrant pain (principal); R30.0 Dysuria; R11.0 Nausea; M54.89 Other dorsalgia; J45.909 Unspecified asthma, uncomplicated; Z87.442 Personal history of urinary calculi; Z88.8 Allergy status to other drugs, medicaments and biological substances
CPT/HCPCS: 36415; 80053; 81001; 85025; 87086; 96374; 96375; 99284; J1170; J2405; J7030

== ENCOUNTER 2018-10-12 17:42 | Emergency (ER) | payer SELFPAY ==
[~2018-10-12] VITALS: Ht 185.4 cm; Wt 86.6 kg
[~2018-10-12 17:42] MED LIST changes: +MTH/1CAP PO; +OXYC1TAB22 PO; +[UNRECOGNIZED DRUG - CODE] PO
--- NOTE | 2018-10-12 18:05 | PHYS DOC ---
Past History Past Medical History: Asthma, Kidney Stones, Other Additional Past Medical Histor: Abnormal Rt. Kidney- Seen U[facility] Past Surgical History: Other Alcohol Use: Occasionally Drug Use: None Adult General Chief Complaint Chief Complaint: ABDOMINAL PAIN HPI HPI Patient is a 33-year-old male with a history of kidney stones who had a right ureteral stent removed today at [facility]. He did not get any pain medication after the stent removal. Since the stent removal he has had progressive pain in the right flank radiating to the groin. He denies any fever chills or sweats. He has had some nausea secondary to the pain. He denies any gross hematuria. Currently, he states the pain is severe where there is no alleviating or exacerbating factors. He isn't been unable to drink much in the way of liquid today.[] Review of Systems Review of Systems Constitutional: Denies fever or chills [] Eyes: Denies change in visual acuity, redness, or eye pain [] HENT: Denies nasal congestion or sore throat [] Respiratory: Denies cough or shortness of breath [] Cardiovascular: No additional information not addressed in HPI [] GI: Denies abdominal pain, nausea, vomiting, bloody stools or diarrhea [] : Per history of present illness[] Musculoskeletal: Denies back pain or joint pain [] Integument: Denies rash or skin lesions [] Neurologic: Denies headache, focal weakness or sensory changes [] Endocrine: Denies polyuria or polydipsia [] All other systems were reviewed and found to be within normal limits, except as documented in this note. Allergies Allergies Allergies Coded Allergies Type Severity Reaction Last Updated Verified iodine Allergy Intermediate 04/27/18 Yes Physical Exam Physical Exam Constitutional: Well developed, well nourished, severe distress, non-toxic appearance. [] HENT: Normocephalic, atraumatic, bilateral external ears normal, oropharynx moist, no oral exudates, nose normal. [] Eyes: PERRLA, EOMI, conjunctiva normal, no discharge. [] Neck: Normal range of motion, no tenderness, supple, no stridor. [] Cardiovascular:Heart rate regular rhythm, no murmur [] Lungs & Thorax: Bilateral breath sounds clear to auscultation [] Abdomen: Bowel sounds normal, soft, no tenderness, no masses, no pulsatile masses. [] Skin: Warm, dry, no erythema, no rash. [] Back: No tenderness, no CVA tenderness. [] Extremities: No tenderness, no cyanosis, no clubbing, ROM intact, no edema. [] Neurologic: Alert and oriented X 3, normal motor function, normal sensory function, no focal deficits noted. [] Psychologic: Anxious. [] EKG EKG [] Radiology/Procedures Radiology/Procedures [] Course & Med Decision Making Course & Med Decision Making Pertinent Labs and Imaging studies reviewed. (See chart for details) [ED course: Evaluation reveals a 33-year-old male with right flank pain. This is likely related to ureteral spasm. He was given IV fluids, Toradol, Dilaudid, Flomax and Zofran with near complete resolution of his symptoms. I will provide the patient with some Flomax and pain medicine to take as an outpatient. I've encouraged him to follow up with his urologist should his symptoms continue.] Dragon Disclaimer Dragon Disclaimer This electronic medical record was generated, in whole or in part, using a voice recognition dictation system. Departure Departure: Impression: Primary Impression: Acute flank pain Disposition: HOME, SELF-CARE Condition: IMPROVED Referrals: PCPDORIAN (PCP) Patient Instructions: Ureteral Stent Additional Instructions: Take medication as directed. Increase her fluids. Return to the emergency department with any new or concerning symptoms. If your symptoms reoccur please call your urologist tomorrow to schedule a follow-up visit. Scripts Ondansetron (ONDANSETRON ODT) 4 Mg Tab.rapdis 1 TAB PO PRN Q6-8HRS for NAUSEA, #16 TAB Prov: MEHDI CARLISLE DO 10/12/18 Oxycodone Hcl/Acetaminophen (PERCOCET 10-325 MG TABLET ) 1 Each Tablet 1 TAB PO PRN Q6HRS PRN for PAIN, #12 TAB Prov: MEHDI CARLISLE DO 10/12/18 Tamsulosin Hcl (FLOMAX) 0.4 Mg Cap.er.24h 1 CAP PO DAILY for ureteral spasm, #30 CAP 11 Refills Prov: MEHDI CARLISLE DO 10/12/18 MEHDI CARLISLE DO Oct 12, 2018 18:05
[2018-10-12] MEDS ORDERED: TAMSULOSIN 0.4 MG CAP.ER.24H. PO ONE (18:15)
[2018-10-12] MEDS ORDERED: IV NORMAL SALINE 1,000ML 1,000 ML IV ONE (18:15)
[2018-10-12] MEDS ORDERED: ONDANSETRON PF 4 MG/2 ML VIAL. IV ONE (18:15)
[2018-10-12] MEDS ORDERED: HYDROmorphone PF 1 MG/ML DISP.SYRIN IVP ONE (18:15)
[2018-10-12] MEDS ORDERED: KETOROLAC 30 MG/ML VIAL. IV ONE (18:15)
[2018-10-12 18:29] LABS: BASO % 0 % (0-3); EOS % 0 % (0-3); HEMATOCRIT 41.7 % (39.0-53.0); HEMOGLOBIN 14.1 g/dL (13.0-17.5); LYMPH # 0.6 x10^3/uL (1.0-4.8); LYMPH % 5 % (24-48); MEAN CORPUSCULAR HEMOGLOBIN 32 pg (25-35); MEAN CORPUSCULAR HGB CONC 34 g/dL (31-37); MEAN CORPUSCULAR VOLUME 93 fL (79-100); MONO # 0.3 x10^3/uL (0.0-1.1); MONO % 3 % (0-9); NEUT # 9.8 x10^3uL (1.8-7.7); NEUT % 92 % (31-73); PLATELET COUNT 248 x10^3/uL (140-400); RED BLOOD COUNT 4.48 x10^6/uL (4.30-5.70); RED CELL DISTRIBUTION WIDTH 13.1 % (11.5-14.5); WHITE BLOOD COUNT 10.7 x10^3/uL (4.0-11.0)
[2018-10-12 18:31] LABS: CALCIUM 9.6 mg/dL (8.5-10.1); CREATININE 1.7 mg/dL (0.7-1.3); GFR 56.4; POTASSIUM 3.9 mmol/L (3.5-5.1)
[2018-10-12] MEDS ORDERED: ONDA4TAB12 PO (19:35)
[2018-10-12] MEDS ORDERED: OXYC1TAB22 PO (19:35)
[2018-10-12] MEDS ORDERED: TAMS0.4C97 PO (19:35)
[2018-10-12 19:53] LABS: BILIRUBIN,URINE NEG (NEG); CLARITY,URINE HAZY; COLOR,URINE YELLOW; GLUCOSE,URINE NEG (NEG)
[2018-10-12 19:54] LABS: BACTERIA,URINE 0 /HPF (0-FEW); NITRITE,URINE NEG (NEG); RBC,URINE >40 /HPF (0-2); SQUAMOUS EPITHELIAL CELL,UR OCC /LPF; UROBILINOGEN,URINE 0.2 mg/dL (0.2 mg/dL); WBC,URINE OCC /HPF (0-4)
[2018-10-12 20:00] VITALS: BP 141/85
== END 2018-10-12 20:10 | disposition home or self-care (01) ==
LOC: ER 17:42
DX: R10.9 Unspecified abdominal pain (principal); J45.909 Unspecified asthma, uncomplicated; Z87.442 Personal history of urinary calculi; Z88.8 Allergy status to other drugs, medicaments and biological substances
CPT/HCPCS: 36415; 80048; 81001; 85025; 96374; 96375; 99284; J1170; J1885; J2405; J7030

== ENCOUNTER 2018-11-19 13:14 | Emergency (ER) | payer SELFPAY ==
[~2018-11-19] VITALS: Ht 185.4 cm; Wt 90.7 kg
[~2018-11-19 13:14] MED LIST changes: +ONDA4TAB12 PO
[2018-11-19 13:28] VITALS: BP 173/111
[2018-11-19] MEDS ORDERED: GELATIN SPONGE SIZE 12-7MM SPONGE. ONE (13:48)
--- NOTE | 2018-11-19 13:54 | PHYS DOC ---
Past History Past Medical History: Asthma Additional Past Medical Histor: Abnormal Rt. Kidney- Seen Urology [facility] Past Surgical History: Other Additional Past Surgical Histo: KIDNEY STENT Alcohol Use: Occasionally Drug Use: Marijuana Adult General Chief Complaint Chief Complaint: FINGER INJURY HPI HPI 33-year-old male presents with finger laceration. 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 He cut his finger to close down to the bleed and he sliced the end of his right third digit. The patient found a piece of skin afterwards. He had immediate bleeding. He washed it out in the sink. It was a clean cut except for pickle juice. He denies any other injuries or complaints. Review of Systems Review of Systems Constitutional: Denies fever or chills [] Eyes: Denies change in visual acuity, redness, or eye pain [] HENT: Denies nasal congestion or sore throat [] Respiratory: Denies cough or shortness of breath [] Cardiovascular: No additional information not addressed in HPI [] GI: Denies abdominal pain, nausea, vomiting, bloody stools or diarrhea [] : Denies dysuria or hematuria [] Musculoskeletal: Denies back pain or joint pain [] Integument: Laceration of right third finger[] Neurologic: Denies headache, focal weakness or sensory changes [] Endocrine: Denies polyuria or polydipsia [] All other systems were reviewed and found to be within normal limits, except as documented in this note. Current Medications Current Medications Current Medications Medications (Trade) Dose Ordered Sig/Vic Start Time Stop Time Status Last Admin Dose Admin Gelatin (Gelfoam Size 12-7mm) 1 each STK-MED ONCE 11/19/18 13:48 11/19/18 13:48 DC Allergies Allergies Allergies Coded Allergies Type Severity Reaction Last Updated Verified iodine Allergy Intermediate 11/19/18 Yes Physical Exam Physical Exam Constitutional: Well developed, well nourished, no acute distress, non-toxic appearance. [] HENT: Normocephalic, atraumatic, bilateral external ears normal, oropharynx moist, no oral exudates, nose normal. [] Eyes: PERRLA, EOMI, conjunctiva normal, no discharge. [] Neck: Normal range of motion, no tenderness, supple, no stridor. [] Cardiovascular:Heart rate regular rhythm, no murmur [] Lungs & Thorax: Bilateral breath sounds clear to auscultation [] Abdomen: Bowel sounds normal, soft, no tenderness, no masses, no pulsatile masses. [] Skin: Laceration of the distal third phalanx of the right hand. 3 mm x 7 mm area of skin missing.[] Back: No tenderness, no CVA tenderness. [] Extremities: No tenderness, no cyanosis, no clubbing, ROM intact, no edema. [] Neurologic: Alert and oriented X 3, normal motor function, normal sensory function, no focal deficits noted. [] Psychologic: Affect normal, judgement normal, mood normal. [] Current Patient Data Vital Signs Vital Signs Date Time Temp Pulse Resp B/P (MAP) Pulse Ox O2 Delivery O2 Flow Rate FiO2 11/19/18 13:28 97.4 71 18 98 Room Air EKG EKG [] Radiology/Procedures Radiology/Procedures [] Course & Med Decision Making Course & Med Decision Making Pertinent Labs and Imaging studies reviewed. (See chart for details) The patient's laceration avulsed off the entire area of skin. This is not amenable to sutures. It will have to heal by secondary intention. We have placed Gelfoam and a compression dressing over the wound. The patient will leave this on until the end of the day tomorrow. He will then do daily changes with a nonadherent pad. His tetanus is up-to-date. He is stable for discharge at this time. [] Dragon Disclaimer Dragon Disclaimer This electronic medical record was generated, in whole or in part, using a voice recognition dictation system. Departure Departure: Impression: Primary Impression: Laceration of right middle finger Disposition: 01 HOME, SELF-CARE Condition: STABLE Referrals: PCP,NO (PCP) Patient Instructions: Fingertip Laceration Problem Qualifiers Primary Impression: Laceration of right middle finger Encounter type: initial encounter Damage to nail status: without damage Foreign body presence: without foreign body Qualified Codes: S61.212A - Laceration without foreign body of right middle finger without damage to nail, initial encounter AUGUSTO PRESCOTT DO Nov 19, 2018 13:54
== END 2018-11-19 13:58 | disposition home or self-care (01) ==
LOC: ER 13:14
DX: S61.212A Laceration without foreign body of right middle finger without damage to nail, initial encounter (principal); J45.909 Unspecified asthma, uncomplicated; Z88.8 Allergy status to other drugs, medicaments and biological substances; W27.8XXA Contact with other nonpowered hand tool, initial encounter; Y93.89 Activity, other specified; Y92.89 Other specified places as the place of occurrence of the external cause; Y99.0 Civilian activity done for income or pay
CPT/HCPCS: 99283

== ENCOUNTER 2020-05-30 18:58 | Emergency (ER) | payer BC ==
[~2020-05-30] VITALS: Ht 185.4 cm; Wt 89.0 kg
[2020-05-30 19:23] VITALS: BP 143/94
--- NOTE | 2020-05-30 19:56 | PHYS DOC ---
Past History Past Medical History: Asthma Additional Past Medical Histor: Abnormal Rt. Kidney- Seen Urology [facility] Past Surgical History: Other Additional Past Surgical Histo: hernia repair, kidney stents Alcohol Use: Occasionally Drug Use: Marijuana General Adult EDM: Chief Complaint: LOWER EXT PAIN HPI: HPI: Patient is a 34-year-old male who presents with right maradiaga pain. Patient states pain started a few days ago. Patient denies known injury. Patient denies calf pain. Reports taking Aleve at home for pain, which provided some relief. Denies health history. Review of Systems: Review of Systems: Constitutional: Denies fever or chills Eyes: Denies change in visual acuity HENT: Denies nasal congestion or sore throat Respiratory: Denies cough or shortness of breath Cardiovascular: Denies chest pain or edema GI: Denies abdominal pain, nausea, vomiting, bloody stools or diarrhea : Denies dysuria Musculoskeletal: Reports right-sided maradiaga pain Integument: Denies rash Neurologic: Denies headache, focal weakness or sensory changes Endocrine: Denies polyuria or polydipsia Lymphatic: Denies swollen glands Psychiatric: Denies depression or anxiety Allergies: Allergies: Allergies Coded Allergies Type Severity Reaction Last Updated Verified iodine Allergy Intermediate 05/30/20 Yes Physical Exam: PE: Constitutional: Well developed, well nourished, no acute distress, non-toxic appearance. [] HENT: Normocephalic, atraumatic, bilateral external ears normal, oropharynx moist, no oral exudates, nose normal. [] Eyes: PERRLA, EOMI, conjunctiva normal, no discharge. [] Neck: Normal range of motion, no tenderness, supple, no stridor. [] Cardiovascular:Heart rate regular rhythm, no murmur [] Lungs & Thorax: Bilateral breath sounds clear to auscultation [] Abdomen: Bowel sounds normal, soft, no tenderness, no masses, no pulsatile masses. [] Skin: Warm, dry, no swelling to right maradiaga Back: No tenderness, no CVA tenderness. [] Extremities: Right maradiaga tenderness, no cyanosis, no edema, range of motion intact Neurologic: Alert and oriented X 3, normal motor function, normal sensory function, no focal deficits noted. [] Psychologic: Affect normal, judgement normal, mood normal. [] Current Patient Data: Vital Signs: Vital Signs Date Time Temp Pulse Resp B/P (MAP) Pulse Ox O2 Delivery O2 Flow Rate FiO2 05/30/20 19:23 98.4 85 18 143/94 (110) 98 EKG: EKG: [] Radiology/Procedures: Radiology/Procedures: [] Heart Score: C/O Chest Pain: No Risk Factors: Risk Factors: DM, Current or recent (<one month) smoker, HTN, HLP, family history of CAD, obesity. Risk Scores: Score 0 - 3: 2.5% MACE over next 6 weeks - Discharge Home Score 4 - 6: 20.3% MACE over next 6 weeks - Admit for Clinical Observation Score 7 - 10: 72.7% MACE over next 6 weeks - Early Invasive Strategies Course & Med Decision Making: Course & Med Decision Making Pertinent Labs and Imaging studies reviewed. (See chart for details) [] Patient presents with right maradiaga pain. Patient denies known injury. "It feels like maradiaga splints, but I was not sure". Patient reports taking Aleve with some relief at home. Pedal pulses intact. Range of motion intact. No swelling noted. Tib-fib, right leg ordered to rule out fracture. Ibuprofen given for discomfort. X-rays negative for fracture. Patient instructed to use ibuprofen and Tylenol at home. Rice instructions given. Patient still has pain, follow-up with PCP. Return emergency room with worsening symptoms or concerns. Juan Disclaimer: Juan Disclaimer: This electronic medical record was generated, in whole or in part, using a voice recognition dictation system. Departure Departure: Impression: Primary Impression: Maradiaga splint of right lower extremity Qualified Codes: S86.891A - Other injury of other muscle(s) and tendon(s) at lower leg level, right leg, initial encounter Disposition: HOME / SELF CARE / HOMELESS Condition: STABLE Referrals: PCP,NO (PCP) Patient Instructions: RICE - Routine Care for Injuries, Maradiaga Splints, [id number] Additional Instructions: You were seen in the emergency room for right leg pain. Your x-ray was negative for fracture. You can use ice to affected area. Tylenol or ibuprofen for discomfort. Try and rest, and elevate to decrease pain and swelling. If you continue to have pain follow-up with your PCP. With worsening symptoms or concerns please return to the emergency room. EMERGENCY DEPARTMENT GENERAL DISCHARGE INSTRUCTIONS Thank you for coming to [facility] (ED) today and trusting us with you care. We trust that you had a positivie experience in our Emergency Department. If you wish to speak to the department management, you may call the director at [phone]. YOUR FOLLOW UP INSTRUCTIONS ARE FOLLOWS: 1. Do you have a private Doctor? If you do not have a private doctor, please ask for a resource list of physicians or clinics that may be able to assist you with follow up care. 2. The Emergency Physician has interpreted your x-rays. The X-Ray specialist will also review them. If there is a change in the findings, you will be notified in 48 hours when at all possible. 3. A lab test or culture has been done, your results will be reviewed and you will be notified if you need a change in treatment. ADDITIONAL INSTRUCTIONS AND INFORMATION: 1. Your care today has been supervised by a physician who is specially trained in emergency care. Many problems require more than one evaluation for a complete diagnosis and treatment. We recommend that you schedule your follow up appointment as recommended to ensure complete treatment of you illness or injury. If you are unable to obtain follow up care and continue to have a problem, or if your condition worsens, we recommend that you return to the ED. 2. We are not able to safely determine your condition over the phone nor are we able to give sound medical advice over the phone. For these safety reasons, if you call for medical advice we will ask you to come to the ED for further evaluation. 3. If you have any questions regarding these discharge instructions please call the ED at [phone]. SAFETY INFORMATION: In the interest of safety, wellness, and injury prevention; we encourage you to wear your sealbelt, if you smoke; quite smoking, and we encourage family to use a prot ective helmet for bicycling and other sporting events that present an increased risk for head injury. IF YOUR SYMPTOMS WORSEN OR NEW SYMPTOMS DEVELOP, OR YOU HAVE CONCERNS ABOUT YOUR CONDITION; OR IF YOUR CONDITION WORSENS WHILE YOU ARE WAITING FOR YOUR FOLLOW UP APPOINTMENT; EITHER CONTACT YOUR PRIMARY CARE DOCTOR, THE PHYSICIAN WHOSE NAME AND NUMBER YOU WERE GIVEN, OR RETURN TO THE ED IMMEDIATELY. NEGAR TONG APRN May 30, 2020 19:56
[2020-05-30] MEDS ORDERED: IBUPROFEN 600 MG TABLET. PO ONE (20:00)
--- NOTE | 2020-05-30 20:14 | RAD ---
Right tibia and fibula AP and lateral views. HISTORY: Pain right maradiaga AP and lateral views were taken of the right tibia and fibula. There is a accessory ossification cent er at the patella which is a normal variation. There is no fracture or acute osseous abnormality in t he right tibia or fibula. IMPRESSION: 1. Negative right tibia and fibula. Electronically signed by: Phillip Gallardo MD (05/30/2020 8:11 PM) [facility]
== END 2020-05-30 20:48 | disposition home or self-care (01) ==
LOC: ER 18:58
DX: S86.891A Other injury of other muscle(s) and tendon(s) at lower leg level, right leg, initial encounter (principal); J45.909 Unspecified asthma, uncomplicated; Z88.8 Allergy status to other drugs, medicaments and biological substances; X58.XXXA Exposure to other specified factors, initial encounter; Y93.89 Activity, other specified; Y92.89 Other specified places as the place of occurrence of the external cause; Y99.8 Other external cause status
CPT/HCPCS: 73590; 99283

== ENCOUNTER 2020-09-30 07:57 | Emergency (ER) | payer BC ==
[~2020-09-30] VITALS: Ht 185.4 cm; Wt 89.0 kg
--- NOTE | 2020-09-30 08:08 | PHYS DOC ---
Past History Past Medical History: Asthma Additional Past Medical Histor: Abnormal Rt. Kidney- Seen Urology [facility] Past Surgical History: Other Additional Past Surgical Histo: hernia repair, kidney stents Alcohol Use: Occasionally Drug Use: Marijuana Adult General HPI HPI Patient is a 35-year-old male presenting via EMS for SI. This is a chronic issue per patient. Has history of depression that is untreated. Reports he has tried to see local guidance center but "they do not do anything to help me". He is on no medication. He has no prior inpatient psychiatric hospitalizations. Reports he is actively suicidal but has no plan. Admits to smoking tobacco and marijuana, also admits alcohol abuse with last drink less than 12 hours ago. Patient will not quantify how much he drinks. It was initially reported that jessika jones was homeless but patient was picked up from an unknown house location. States he recently started a job at [employer] which she enjoys, he is tearful because he is missing work for this ER visit today Review of Systems Review of Systems Fourteen body systems of review of systems have been reviewed. See HPI for pertinent positives and negative responses, other murrell all other systems are negative, non-pertinent or non-contributory Allergies Allergies Allergies Coded Allergies Type Severity Reaction Last Updated Verified iodine Allergy Intermediate 05/30/20 Yes Physical Exam Physical Exam Constitutional: Well developed, well nourished, no acute distress, non-toxic appearance. HENT: Normocephalic, atraumatic, bilateral external ears normal, oropharynx moist, no oral exudates, nose normal. Eyes: PERRLA, EOMI, conjunctiva normal, no discharge. Neck: Normal range of motion, no tenderness, supple, no stridor. Cardiovascular: Heart rate regular, sinus rhythm, no murmurs rubs or gallops Lungs & Thorax: Bilateral breath sounds clear to auscultation Abdomen: Bowel sounds normal, soft, no tenderness, no masses, no pulsatile ovidio s. Nonsurgical abdomen, no peritoneal signs Skin: Warm, dry, no erythema, no rash. Back: No tenderness, no CVA tenderness. Extremities: No tenderness, no cyanosis, no clubbing, ROM intact, no edema. Neurologic: Alert and oriented X 3, grossly normal motor & sensory function, no focal deficits noted. Psychologic: Tearful affect, depressed mood Current Patient Data Vital Signs Vital Signs Date Time Temp Pulse Resp B/P (MAP) Pulse Ox O2 Delivery O2 Flow Rate FiO2 09/30/20 08:11 98.3 71 20 143/94 98 Room Air Vital Signs Date Time Temp Pulse Resp B/P (MAP) Pulse Ox O2 Delivery O2 Flow Rate FiO2 09/30/20 08:11 98.3 71 20 143/94 98 Room Air Lab Results Laboratory Tests Test 09/30/20 08:06 09/30/20 08:11 09/30/20 10:28 White Blood Count 7.6 x10^3/uL Red Blood Count 4.68 x10^6/uL Hemoglobin 15.4 g/dL Hematocrit 44.7 % Mean Corpuscular Volume 96 fL Mean Corpuscular Hemoglobin 33 pg Mean Corpuscular Hemoglobin Concent 34 g/dL Red Cell Distribution Width 12.9 % Platelet Count 235 x10^3/uL Neutrophils (%) (Auto) 58 % Lymphocytes (%) (Auto) 31 % Monocytes (%) (Auto) 7 % Eosinophils (%) (Auto) 3 % Basophils (%) (Auto) 1 % Neutrophils # (Auto) 4.3 x10^3uL Lymphocytes # (Auto) 2.4 x10^3/uL Monocytes # (Auto) 0.6 x10^3/uL Eosinophils # (Auto) 0.3 x10^3/uL Basophils # (Auto) 0.0 x10^3/uL Sodium Level 143 mmol/L Potassium Level 4.1 mmol/L Chloride Level 110 mmol/L Carbon Dioxide Level 25 mmol/L Anion Gap 8 Blood Urea Nitrogen 11 mg/dL Creatinine 1.6 mg/dL Estimated GFR (Cockcroft-Gault) 59.8 BUN/Creatinine Ratio 7 Glucose Level 105 mg/dL Calcium Level 8.2 mg/dL Total Bilirubin 0.4 mg/dL Aspartate Amino Transf (AST/SGOT) 17 U/L Alanine Aminotransferase (ALT/SGPT) 20 U/L Alkaline Phosphatase 68 U/L Total Protein 7.6 g/dL Albumin 3.9 g/dL Albumin/Globulin Ratio 1.1 Salicylates Level 2.9 mg/dL Salicylate Last Dose Date Unknown Salicylate Last Dose Time Unknown Acetaminophen Level < 2 mcg/mL Acetaminophen Last Dose Date Unknown Acetaminophen Last Dose Time Unknown Ethyl Alcohol Level 174 mg/dL Coronavirus (COVID-19)(PCR) Negative SARS-CoV-2 Antigen (Rapid) Negative Urine Opiates Screen Neg Urine Methadone Screen Neg Urine Barbiturates Neg Urine Phencyclidine Screen Neg Urine Amphetamine/Methamphetamine Neg Urine Benzodiazepines Screen Neg Urine Cocaine Screen Neg Urine Cannabinoids Screen Pos Urine Ethyl Alcohol Pos EKG EKG [] Radiology/Procedures Radiology/Procedures [] Heart Score C/O Chest Pain: No Risk Factors: Risk Factors: DM, Current or recent (<one month) smoker, HTN, HLP, family h istory of CAD, obesity. Risk Scores: Risk Factors: DM, Current or recent (<one month) smoker, HTN, HLP, family history of CAD, obesity. Course & Med Decision Making Course & Med Decision Making ABCs unremarkable. HPI, physical examination and comprehensive ER work-up concerning for alcohol intoxication and active suicidal ideation without an obvious plan. Patient evaluated by qualified mental health professional who reviewed any appropriate supporting documentation and previous available medical records and feels patient meets criteria for admission to mental health facility. Patient did admit to actual plan for suicide with mental health professional. Please refer to qualified mental health professional's documentation describing reasoning. Patient accepted for inpatient psychiatric transfer to [facility]. He was updated on this and amenable, remains voluntary for transfer and further inpatient treatment. All questions and concerns addressed prior to ER transfer Dragon Disclaimer Dragon Disclaimer This electronic medical record was generated, in whole or in part, using a voice recognition dictation system. Departure Departure: Impression: Primary Impression: Suicidal ideation Additional Impression: Alcohol use Disposition: [address] [place] [id number] ([facility]) Admitting Physician: Other (dr flores) Condition: STABLE Referrals: PCP,NO (PCP) Problem Qualifiers AKHIL LOPEZ DO Sep 30, 2020 08:08
[2020-09-30 08:29] LABS: BASO % 1 % (0-3); EOS # 0.3 x10^3/uL (0.0-0.7); EOS % 3 % (0-3); HEMATOCRIT 44.7 % (39.0-53.0); HEMOGLOBIN 15.4 g/dL (13.0-17.5); LYMPH # 2.4 x10^3/uL (1.0-4.8); LYMPH % 31 % (24-48); MEAN CORPUSCULAR HEMOGLOBIN 33 pg (25-35); MEAN CORPUSCULAR HGB CONC 34 g/dL (31-37); MEAN CORPUSCULAR VOLUME 96 fL (79-100); MONO # 0.6 x10^3/uL (0.0-1.1); MONO % 7 % (0-9); NEUT # 4.3 x10^3uL (1.8-7.7); NEUT % 58 % (31-73); PLATELET COUNT 235 x10^3/uL (140-400); RED BLOOD COUNT 4.68 x10^6/uL (4.30-5.70); RED CELL DISTRIBUTION WIDTH 12.9 % (11.5-14.5); WHITE BLOOD COUNT 7.6 x10^3/uL (4.0-11.0)
[2020-09-30 08:34] LABS: CALCIUM 8.2 mg/dL (8.5-10.1); CREATININE 1.6 mg/dL (0.7-1.3); GFR 59.8; POTASSIUM 4.1 mmol/L (3.5-5.1)
[2020-09-30 08:40] LABS: ALBUMIN 3.9 g/dL (3.4-5.0); ALBUMIN/GLOBULIN RATIO 1.1 (1.0-1.7); TOTAL BILIRUBIN 0.4 mg/dL (0.2-1.0); TOTAL PROTEIN 7.6 g/dL (6.4-8.2)
[2020-09-30 08:41] LABS: ACETAMIN < 2 mcg/mL (10-30); ETHANOL 174 mg/dL (0-10); SALIC 2.9 mg/dL (2.8-20.0)
[2020-09-30 10:57] LABS: BARBITURATES NEG (NEG); BENZODIAZEPINES NEG (NEG); CANNABINOIDS POS (NEG); COCAINE NEG (NEG); METHADONE NEG (NEG); OPIATES NEG (NEG); PHENCYCLIDINE NEG (NEG)
[2020-09-30 10:59] LABS: AMPHETAMINE/METHAMPHETAMINE NEG (NEG)
[2020-09-30 14:23] VITALS: BP 142/88
== END 2020-09-30 15:01 ==
LOC: ER 07:57
DX: R45.851 Suicidal ideations (principal); F10.129 Alcohol abuse with intoxication, unspecified; J45.909 Unspecified asthma, uncomplicated; F12.10 Cannabis abuse, uncomplicated; Z20.822 Contact with and (suspected) exposure to COVID-19; Y90.8 Blood alcohol level of 240 mg/100 ml or more
CPT/HCPCS: 36415; 80053; 80307; 80329; 85025; 87426; 99285; G0480; U0003